=== PATIENT | female | born 1950 | race African-American/Black ===

== ENCOUNTER → 2020-08-09 | Outpatient (CLI) | payer MEDICARE ==
[~2020-08-09] MED LIST: FUROSEMIDE INJ 10 MG/ML 4 ML VIAL ONE
== END ==
LOC: NM 08:14
PROVIDERS: ATTEND Urology
DX: R31.21 Asymptomatic microscopic hematuria (principal)
CPT/HCPCS: 78708; A9562; J1940

== ENCOUNTER 2020-09-08 09:21 | Inpatient (IN) | payer MEDICARE ==
[2020-09-06 08:33] LABS: BASOPHILS % 0.3 % (0.0-1.0); EOSINOPHILS # (AUTO) 0.2 (0.0-0.4); EOSINOPHILS % 2.9 % (0.0-6.0); HEMATOCRIT 39.1 % (34.2-44.1); HEMOGLOBIN 11.8 g/dL (12.0-16.0); LYMPHOCYTES # (AUTO) 2.5 (1.0-3.2); MEAN CORPUSCULAR HEMOGLOBIN 27.2 pg (28-32); MEAN CORPUSCULAR HGB CONC 30.2 g/dL (31-35); MEAN CORPUSCULAR VOLUME 90.1 fL (81-99); MONOCYTES # (AUTO) 0.6 (0.2-0.8); MONOCYTES % 7.9 % (4.4-11.3); NEUTROPHILS # (AUTO) 4.1 (2.1-6.9); NEUTROPHILS % 54.6 % (38.7-80.0); PLATELET COUNT 239 x10e3/uL (140-360); RED BLOOD COUNT 4.34 x10e6/uL (3.6-5.1); RED CELL DISTRIBUTION WIDTH 12.5 % (11.7-14.4)
[2020-09-06 09:02] LABS: ANION GAP 13.5 mmol/L (8-16); CALCIUM 8.9 mg/dL (8.4-10.2); CREATININE, SERUM 1.46 mg/dL (0.57-1.11); POTASSIUM 4.5 mmol/L (3.5-5.1)
[~2020-09-08] VITALS: Ht 162.6 cm; Wt 125.0 kg
[~2020-09-08 09:21] MED LIST changes: +ALTOPREV40 MG PO; +CYCLOBENZAPRINE10 MG PO; -FUROSEMIDE INJ 10 MG/ML 4 ML VIAL ONE; +GLIMEPIRIDE2 MG PO; +NEURONTIN400 MG PO; +OLMESARTAN-HCT1 EAC1 PO; +PROAIR HFA INH8.5 GM INH; +ULTRAM50 MG PO
[2020-09-08] MEDS ORDERED: LEVOFLOXACIN 500MG/D5W 100ML 100 ML IV ONE (10:57)
[2020-09-08] MEDS ORDERED: MANNITOL 25% 12.5GM/50ML 0 ML ONE (11:16)
[2020-09-08] MEDS ORDERED: IOPAMIDOL 300MG/ML 50ML INFUS..BTL IV ONE (11:50)
[2020-09-08] MEDS ORDERED: PROPOFOL IV EMULSION 10 MG/ML 20 ML VIAL ONE (13:05)
[2020-09-08] MEDS ORDERED: ROCURONIUM BROMIDE 10 MG/ML 5ML VIAL IV ONE (13:05)
[2020-09-08] MEDS ORDERED: SEVOFLURANE INHAL SOLN 250 ML PEN BTL ONE (13:05)
[2020-09-08] MEDS ORDERED: ONDANSETRON HCL INJ 2MG/ML 2ML 2 MG/ML VIAL ONE (13:05)
[2020-09-08] MEDS ORDERED: DEXAMETHASONE SOD PHOS INJ 4 MG/ML VIAL ONE (13:05)
[2020-09-08] MEDS ORDERED: NEOSTIGMINE 1 MG/ML 10ML VIAL ONE (13:05)
[2020-09-08] MEDS ORDERED: LIDOCAINE HCL 2% LOCAL INJ 5 ML SDV VIAL INJ ONE (13:05)
[2020-09-08] MEDS ORDERED: GLYCOPYRROLATE INJ 0.2 MG/ML VIAL ONE (13:05)
[2020-09-08] MEDS ORDERED: MIDAZOLAM HCL 2 MG/2 ML VIAL ONE (13:35)
[2020-09-08] MEDS ORDERED: FENTANYL CITRATE/PF 100MCG/2 ML INJ ONE ×2 (13:35→15:44)
[2020-09-08] MEDS ORDERED: SUGAMMADEX SODIUM 200 MG/2 ML VIAL IV ONE (14:36)
[2020-09-08] MEDS ORDERED: NALOXONE HCL INJ 0.4 MG/ML AMP IV PRN (14:45)
[2020-09-08] MEDS: SODIUM CHLORIDE 0.9% 250ML IRRIG IR SCH ×3 (14:45→23:00)
[2020-09-08] MEDS ORDERED: ONDANSETRON HCL INJ 2MG/ML 2ML 2 MG/ML VIAL IV PRN (14:45)
[2020-09-08] MEDS ORDERED: DIPHENHYDRAMINE HCL INJ 50 MG/ML VIAL IM PRN (14:45)
[2020-09-08] MEDS ORDERED: ACETAMINOPHEN 1000 MG/100 ML IV PRN (14:45)
[2020-09-08] MEDS ORDERED: HYDROMORPHONE 1MG/1ML INJ ONE (15:12)
[2020-09-08] MEDS: MORPHINE SULFATE 1 MG/ML 30ML PCA IV PRN ×2 (15:21→21:02)
[2020-09-08 15:53] LABS: BASOPHILS # (AUTO) 0.1 (0.0-0.1); BASOPHILS % 0.3 % (0.0-1.0); EOSINOPHILS % 0.1 % (0.0-6.0); HEMATOCRIT 37.3 % (34.2-44.1); HEMOGLOBIN 11.5 g/dL (12.0-16.0); LYMPHOCYTES # (AUTO) 2.2 (1.0-3.2); LYMPHOCYTES % 12.8 % (18.0-39.1); MEAN CORPUSCULAR HEMOGLOBIN 27.8 pg (28-32); MEAN CORPUSCULAR HGB CONC 30.8 g/dL (31-35); MEAN CORPUSCULAR VOLUME 90.1 fL (81-99); MONOCYTES # (AUTO) 0.4 (0.2-0.8); MONOCYTES % 2.1 % (4.4-11.3); NEUTROPHILS # (AUTO) 14.7 (2.1-6.9); NEUTROPHILS % 84.1 % (38.7-80.0); PLATELET COUNT 182 x10e3/uL (140-360); RED BLOOD COUNT 4.14 x10e6/uL (3.6-5.1); RED CELL DISTRIBUTION WIDTH 12.6 % (11.7-14.4)
[2020-09-08 16:01] LABS: ANION GAP 18.2 mmol/L (8-16); CALCIUM 8.3 mg/dL (8.4-10.2); CREATININE, SERUM 1.18 mg/dL (0.57-1.11); POTASSIUM 4.2 mmol/L (3.5-5.1)
[2020-09-08] MEDS ORDERED: MORPHINE SULFATE INJ 4 MG/ML INJ 1ML ONE (16:22)
[2020-09-08 16:34] VITALS: BP 172/89
[2020-09-08] MEDS ORDERED: FLONASE ALLERG9.9 ML INH (18:08)
[2020-09-08] MEDS: SOD CHL 0.45%/POT CHL 20MEQ 1,000 ML IV SCH (18:30)
[2020-09-08] MEDS: CLINDAMYCIN 300MG 50 ML IV SCH (18:30)
[2020-09-08 19:00] VITALS: BP 169/82
[2020-09-08 20:00] VITALS: BP 168/87
[2020-09-08 21:00] VITALS: BP 148/83
[2020-09-08 22:00] VITALS: BP 132/73
[2020-09-08 23:00] VITALS: BP 124/61
[2020-09-09] VITALS (13 sets, daily range): BP systolic 90–145; BP diastolic 53–118
[2020-09-09] MEDS: CLINDAMYCIN 300MG 50 ML IV SCH ×3 (01:45→17:38)
[2020-09-09] MEDS: SOD CHL 0.45%/POT CHL 20MEQ 1,000 ML IV SCH (01:45)
[2020-09-09] MEDS: SODIUM CHLORIDE 0.9% 250ML IRRIG IR SCH ×6 (01:47→22:45)
[2020-09-09 05:13] LABS: BASOPHILS % 0.1 % (0.0-1.0); HEMATOCRIT 34.7 % (34.2-44.1); HEMOGLOBIN 10.6 g/dL (12.0-16.0); LYMPHOCYTES % 14.5 % (18.0-39.1); MEAN CORPUSCULAR HEMOGLOBIN 27.4 pg (28-32); MEAN CORPUSCULAR HGB CONC 30.5 g/dL (31-35); MEAN CORPUSCULAR VOLUME 89.7 fL (81-99); MONOCYTES # (AUTO) 1.6 (0.2-0.8); MONOCYTES % 12.1 % (4.4-11.3); NEUTROPHILS # (AUTO) 9.8 (2.1-6.9); NEUTROPHILS % 72.9 % (38.7-80.0); PLATELET COUNT 244 x10e3/uL (140-360); RED BLOOD COUNT 3.87 x10e6/uL (3.6-5.1); RED CELL DISTRIBUTION WIDTH 12.4 % (11.7-14.4)
[2020-09-09 05:31] LABS: CALCIUM 7.9 mg/dL (8.4-10.2); CREATININE, SERUM 1.76 mg/dL (0.57-1.11)
[2020-09-09 05:57] LABS: ANION GAP 15.3 mmol/L (8-16)
[2020-09-09 05:58] LABS: POTASSIUM 5.3 mmol/L (3.5-5.1)
[2020-09-09] MEDS: MORPHINE SULFATE 1 MG/ML 30ML PCA IV PRN ×2 (06:20→06:21)
[2020-09-09] MEDS: SODIUM CHLORIDE 0.45% 1,000 ML IV SCH ×2 (06:20→17:18)
[2020-09-09] MEDS ORDERED: SODIUM CHLORIDE 0.45% 1,000 ML ONE (06:23)
[2020-09-09 07:50] LABS: CHOL/HDL RATIO 2.9 (3.0-3.6)
[2020-09-09] MEDS: FAMOTIDINE 20 MG/2 ML VIAL IV SCH (08:02)
[2020-09-09] MEDS: DIPHENHYDRAMINE HCL INJ 50 MG/ML VIAL IV PRN (11:09)
[2020-09-09] MEDS ORDERED: DEXTROSE 50% SYRINGE 50 ML IV PRN (21:00)
[2020-09-09] MEDS: DEXTROSE 5%/0.45% SOD CHL 1,000 ML IV SCH (21:35)
[2020-09-10] VITALS (7 sets, daily range): BP systolic 99–114; BP diastolic 52–65
[2020-09-10] MEDS: CLINDAMYCIN 300MG 50 ML IV SCH ×3 (01:41→17:10)
[2020-09-10] MEDS: SODIUM CHLORIDE 0.9% 250ML IRRIG IR SCH ×6 (02:45→22:32)
[2020-09-10] MEDS: MORPHINE SULFATE 1 MG/ML 30ML PCA IV PRN (02:45)
[2020-09-10] MEDS: DEXTROSE 5%/0.45% SOD CHL 1,000 ML IV SCH ×3 (05:51→21:54)
[2020-09-10] MEDS: INSULIN REGULAR, HUMAN 100 UNIT/1 ML 3ML VIAL SQ SCH ×5 (06:00→23:37)
[2020-09-10 06:14] LABS: BASOPHILS % 0.1 % (0.0-1.0); EOSINOPHILS # (AUTO) 0.1 (0.0-0.4); HEMATOCRIT 31.8 % (34.2-44.1); HEMOGLOBIN 9.8 g/dL (12.0-16.0); LYMPHOCYTES % 18.9 % (18.0-39.1); MEAN CORPUSCULAR HEMOGLOBIN 28.2 pg (28-32); MEAN CORPUSCULAR HGB CONC 30.8 g/dL (31-35); MEAN CORPUSCULAR VOLUME 91.4 fL (81-99); MONOCYTES # (AUTO) 1.2 (0.2-0.8); NEUTROPHILS # (AUTO) 7.3 (2.1-6.9); NEUTROPHILS % 68.7 % (38.7-80.0); PLATELET COUNT 193 x10e3/uL (140-360); RED BLOOD COUNT 3.48 x10e6/uL (3.6-5.1); RED CELL DISTRIBUTION WIDTH 12.7 % (11.7-14.4)
[2020-09-10 06:29] LABS: ANION GAP 13.7 mmol/L (8-16); CALCIUM 7.5 mg/dL (8.4-10.2); CREATININE, SERUM 2.79 mg/dL (0.57-1.11); POTASSIUM 4.7 mmol/L (3.5-5.1)
[2020-09-10] MEDS: FAMOTIDINE 20 MG/2 ML VIAL IV SCH (08:39)
[2020-09-11] VITALS (8 sets, daily range): BP systolic 103–129; BP diastolic 49–60
[2020-09-11] MEDS: MORPHINE SULFATE 1 MG/ML 30ML PCA IV PRN (00:09)
[2020-09-11] MEDS: CLINDAMYCIN 300MG 50 ML IV SCH ×3 (01:46→17:01)
[2020-09-11] MEDS: SODIUM CHLORIDE 0.9% 250ML IRRIG IR SCH ×3 (02:45→10:00)
[2020-09-11] MEDS: INSULIN REGULAR, HUMAN 100 UNIT/1 ML 3ML VIAL SQ SCH ×3 (05:34→18:00)
[2020-09-11] MEDS: DEXTROSE 5%/0.45% SOD CHL 1,000 ML IV SCH ×3 (06:00→19:15)
[2020-09-11 06:03] LABS: BASOPHILS % 0.2 % (0.0-1.0); EOSINOPHILS # (AUTO) 0.1 (0.0-0.4); EOSINOPHILS % 1.3 % (0.0-6.0); HEMATOCRIT 30.9 % (34.2-44.1); HEMOGLOBIN 9.6 g/dL (12.0-16.0); LYMPHOCYTES # (AUTO) 1.8 (1.0-3.2); LYMPHOCYTES % 17.9 % (18.0-39.1); MEAN CORPUSCULAR HEMOGLOBIN 27.9 pg (28-32); MEAN CORPUSCULAR HGB CONC 31.1 g/dL (31-35); MEAN CORPUSCULAR VOLUME 89.8 fL (81-99); MONOCYTES # (AUTO) 0.9 (0.2-0.8); MONOCYTES % 9.5 % (4.4-11.3); NEUTROPHILS % 70.6 % (38.7-80.0); PLATELET COUNT 196 x10e3/uL (140-360); RED BLOOD COUNT 3.44 x10e6/uL (3.6-5.1); RED CELL DISTRIBUTION WIDTH 12.4 % (11.7-14.4)
[2020-09-11 06:22] LABS: ANION GAP 11.6 mmol/L (8-16); CALCIUM 8.1 mg/dL (8.4-10.2); CREATININE, SERUM 2.13 mg/dL (0.57-1.11); POTASSIUM 4.6 mmol/L (3.5-5.1)
[2020-09-11] MEDS: FAMOTIDINE 20 MG/2 ML VIAL IV SCH (08:30)
[2020-09-11] MEDS: DIPHENHYDRAMINE HCL INJ 50 MG/ML VIAL IV PRN (08:30)
[2020-09-11] MEDS ORDERED: BISACODYL 10 MG SUPP PR ONE (11:30)
[2020-09-11] MEDS ORDERED: MORPHINE SULFATE 1 MG/ML 30ML PCA IV PRN (11:30)
[2020-09-12] VITALS (7 sets, daily range): BP systolic 130–166; BP diastolic 63–85
[2020-09-12] MEDS: CLINDAMYCIN 300MG 50 ML IV SCH ×3 (02:19→17:58)
[2020-09-12] MEDS: DEXTROSE 5%/0.45% SOD CHL 1,000 ML IV SCH ×2 (04:14→15:00)
[2020-09-12 04:51] LABS: BASOPHILS % 0.2 % (0.0-1.0); EOSINOPHILS # (AUTO) 0.1 (0.0-0.4); EOSINOPHILS % 1.1 % (0.0-6.0); HEMATOCRIT 30.8 % (34.2-44.1); HEMOGLOBIN 9.8 g/dL (12.0-16.0); LYMPHOCYTES # (AUTO) 1.8 (1.0-3.2); LYMPHOCYTES % 17.8 % (18.0-39.1); MEAN CORPUSCULAR HEMOGLOBIN 28.2 pg (28-32); MEAN CORPUSCULAR HGB CONC 31.8 g/dL (31-35); MEAN CORPUSCULAR VOLUME 88.8 fL (81-99); MONOCYTES # (AUTO) 0.9 (0.2-0.8); MONOCYTES % 8.9 % (4.4-11.3); NEUTROPHILS # (AUTO) 7.1 (2.1-6.9); NEUTROPHILS % 71.6 % (38.7-80.0); PLATELET COUNT 218 x10e3/uL (140-360); RED BLOOD COUNT 3.47 x10e6/uL (3.6-5.1); RED CELL DISTRIBUTION WIDTH 12.3 % (11.7-14.4)
[2020-09-12 05:09] LABS: ANION GAP 12.9 mmol/L (8-16); CALCIUM 8.8 mg/dL (8.4-10.2); CREATININE, SERUM 1.83 mg/dL (0.57-1.11); POTASSIUM 4.9 mmol/L (3.5-5.1)
[2020-09-12] MEDS: INSULIN REGULAR, HUMAN 100 UNIT/1 ML 3ML VIAL SQ SCH ×4 (06:00→18:24)
[2020-09-12] MEDS: FAMOTIDINE 20 MG/2 ML VIAL IV SCH (09:50)
[2020-09-12] MEDS: DOCUSATE SODIUM 100 MG CAP PO SCH (17:58)
[2020-09-12] MEDS: ACETAMINOPHEN/CODEINE 300MG - 30MG TAB PO PRN ×2 (19:48→23:49)
[2020-09-13] MEDS: DEXTROSE 5%/0.45% SOD CHL 1,000 ML IV SCH (01:37)
[2020-09-13] MEDS: CLINDAMYCIN 300MG 50 ML IV SCH ×2 (01:37→10:09)
[2020-09-13 04:00] VITALS: BP 145/74
[2020-09-13 05:42] LABS: BASOPHILS % 0.2 % (0.0-1.0); EOSINOPHILS # (AUTO) 0.2 (0.0-0.4); EOSINOPHILS % 2.2 % (0.0-6.0); HEMATOCRIT 29.7 % (34.2-44.1); HEMOGLOBIN 9.8 g/dL (12.0-16.0); LYMPHOCYTES # (AUTO) 1.9 (1.0-3.2); MEAN CORPUSCULAR HEMOGLOBIN 28.3 pg (28-32); MEAN CORPUSCULAR VOLUME 85.8 fL (81-99); MONOCYTES # (AUTO) 1.1 (0.2-0.8); NEUTROPHILS # (AUTO) 6.4 (2.1-6.9); NEUTROPHILS % 66.3 % (38.7-80.0); PLATELET COUNT 246 x10e3/uL (140-360); RED BLOOD COUNT 3.46 x10e6/uL (3.6-5.1); RED CELL DISTRIBUTION WIDTH 12.3 % (11.7-14.4)
[2020-09-13] MEDS: INSULIN REGULAR, HUMAN 100 UNIT/1 ML 3ML VIAL SQ SCH ×2 (06:00)
[2020-09-13 06:07] LABS: ANION GAP 12.1 mmol/L (8-16); CALCIUM 8.9 mg/dL (8.4-10.2); CREATININE, SERUM 1.57 mg/dL (0.57-1.11); POTASSIUM 4.1 mmol/L (3.5-5.1)
[2020-09-13] MEDS: ACETAMINOPHEN/CODEINE 300MG - 30MG TAB PO PRN ×2 (06:19→11:52)
[2020-09-13 08:12] VITALS: BP 136/76
[2020-09-13 08:14] VITALS: BP 136/76
[2020-09-13] MEDS: DOCUSATE SODIUM 100 MG CAP PO SCH (08:42)
[2020-09-13] MEDS: FAMOTIDINE 20 MG/2 ML VIAL IV SCH (08:42)
[2020-09-13] MEDS ORDERED: ONDANSETRON HCL 4 MG ORAL DISINTEGRATING TAB PO PRN (10:15)
[2020-09-13] MEDS ORDERED: INSULIN REGULAR, HUMAN 100 UNIT/1 ML 3ML VIAL SQ SCH (11:30)
[2020-09-13 12:07] VITALS: BP 136/87
[2020-09-13] MEDS ORDERED: TYLENOL # 31 EA PO (13:18)
[2020-09-13 16:18] VITALS: BP 130/67
== END 2020-09-13 16:40 | disposition home or self-care (01) | DRG 854 ==
LOC: OR 09:21 → PACU V 14:47 → ICU 17:18 → MED/SURG 09-09 12:17
PROVIDERS: ADMIT Internal Medicine; ATTEND Internal Medicine
PROC: 0TT60ZZ Resection of Right Ureter, Open Approach (ICD-10-PCS; 2020-09-08)
PROC: BT14ZZZ Fluoroscopy of Kidneys, Ureters and Bladder (ICD-10-PCS; principal; 2020-09-08 12:00)
PROC: 0TT00ZZ Resection of Right Kidney, Open Approach (ICD-10-PCS; 2020-09-08 12:00)
DX: A41.9 Sepsis, unspecified organism (principal); Z68.42 Body mass index [BMI] 45.0-49.9, adult; N17.9 Acute kidney failure, unspecified; N28.89 Other specified disorders of kidney and ureter; E66.01 Morbid (severe) obesity due to excess calories; E11.9 Type 2 diabetes mellitus without complications; E87.5 Hyperkalemia; Z20.822 Contact with and (suspected) exposure to COVID-19; Z80.42 Family history of malignant neoplasm of prostate
CPT/HCPCS: 36415; 71045; 74420; 80048; 80061; 82948; 83036; 83735; 85025; 86850; 86900; 86920; 88307; 88309; 88342; 93005; C1758; J1100; J1170; J1200; J1817; J1956; J2001; J2150; J2250; J2270; J2405; J2710; J3010; U0002